=== PATIENT | male | born 1960 | race Caucasian/White ===

== ENCOUNTER → 2021-01-29 10:31 | Outpatient (BNVA) | payer MEDICAID, SELFPAY | PROVIDERS: Visit Provider Surgery | DX: Z01.812 Encounter for preprocedural laboratory examination (principal); K80.20 Calculus of gallbladder without cholecystitis without obstruction; Z20.822 Contact with and (suspected) exposure to COVID-19 | CPT/HCPCS: 87635 ==

== ENCOUNTER 2021-02-03 05:47 | Day surgery (SDC) | payer MEDICAID, SELFPAY ==
[2021-01-31 12:54] VITALS: BMI 23.6
[2021-02-03] VITALS (17 sets, daily range): BP systolic 137–179; BP diastolic 89–122; PULSE 72–89; RESP 15–27; TEMP 36.2–36.5; O2SAT 89–100
--- NOTE | 2021-02-03 06:15 | W.PM.OPSUD ---
Surgery/Procedure H&P Update DATE OF PROCEDURE: February 03, 2021 DATE H&P PERFORMED: 01/16/21 H&P UPDATE INFORMATION: I have reviewed H&P completed within last 30 days, I have examined patient prior to procedure and No changes to prior documentation PREOP DIAGNOSIS: Symptomatic cholelithiasis PRIMARY INDICATION FOR PROCEDURE: The same PLANNED PROCEDURE: Operation Date: 02/03/21 07:00 Proposed Procedures p Laparoscopic Cholecystectomy 14493 K80.20(Not Applicable) - Nils Jerry MD
[2021-02-03] MEDS: sodium chloride 0.9% 1,000 ML 30 ML IV (06:31)
--- NOTE | 2021-02-03 07:00 | ANES.PREANE2 ---
Documented by User: Alcira Farr CRNA 02/03/21 07:06 Pre-Anesthetic Assessment Pre-Anesthetic Assessment: Height/Weight: Height 5 ft 10 in Weight 74.843 kg Temp Pulse Resp BP Pulse Ox 97.7 F 87 18 166/108 95 02/03/21 06:17 02/03/21 06:17 02/03/21 06:17 02/03/21 06:17 02/03/21 06:17 Preop Diagnosis: Symptomatic cholelithiasis Proposed Procedure: Operation Date: 02/03/21 07:00 Proposed Procedures p Laparoscopic Cholecystectomy 59056 K80.20(Not Applicable) - Nils Jerry MD Was Beta Meek taken within 24 hours: N/A Was Clonidine taken within 24 hours: N/A Last intake: Intake Last Liquid Date 02/02/21 Last Liquid Time 20:00 Last Solid Date 02/02/21 Last Solid Time 20:00 Social: Social History: Tobacco (quit smoking 2016, had last chewing tobacco last night) Exam: Pre-Anes Outpt Exam: alert, oriented x 3 and clear to auscultation bilaterally Airway: Submandibular: WNL Cervical ROM: WNL MP: 2 Dentition: False (upper) History/ROS: No significant history except as noted Pulmonary: Pulmonary: None reported CV/HEM: CV/HEM: CHF (1 year ago came to hospital with leg swelling; put on lasix and never followed up with blood tester fowl) and HTN Comments: denies CP today and for the last year. no SOB since last year : Comments: renal caluli Hepatic: Hepatic: None reported GI: GI: None reported Metabolic: Metabolic: None reported Musc/skel: Musc/skel: Lower Back Pain (takes aleve ocassionally/last time 3 weeks ago) Neuropsych: Neuropsych: Anxiety and Depression Anesthetic Plan: ASA status: 3 Anesthesia: Anesthesia Evaluation and General Risk of > 500 ml blood loss (7ml/kg in children): No Meds/Allergies Current Medications: Current Medications Generic Name Dose Route Start Last Admin Trade Name Freq PRN Reason Stop Dose Admin Sodium Chloride 1,000 mls @ 30 ml s/hr 02/03/21 06:15 02/03/21 06:31 Sodium Chloride 0.9% IV 02/04/21 06:14 30 mls/hr .Q24H RIO Administration PFSH Anesthesia PFSH: Medical History Hypertension Social History Second hand smoke exposure: No Smoking risk assessment/counseling performed?: Yes Alcohol intake: never Desire information about alcohol rehabilitation?: No Counseling given: Yes Desire information about substance/drug rehabilitation?: No Counseling given: Yes Adopted: No Caregiver/support person: No Lives independently: Yes Household members: family Housing: Manufactured/Mobile home Marital status: Number of children: 1 Highest education level completed: GED or Equivalent service: No Current occupational status: disabled History of recent travel: No Data Anesthesia Cardiac Studies: No Data to Display Documented by User: Lewis Villasenor 02/03/21 08:01 PFS Anesthesia PFSH: Medical History Hypertension Social History Second hand smoke exposure: No Smoking risk assessment/counseling performed?: Yes Alcohol intake: never Desire information about alcohol rehabilitation?: No Counseling given: Yes Desire information about substance/drug rehabilitation?: No Counseling given: Yes Adopted: No Caregiver/support person: No Lives independently: Yes Household members: family Housing: Manufactured/Mobile home Marital status: Number of children: 1 Highest education level completed: GED or Equivalent service: No Current occupational status: disabled History of recent travel: No Data Anesthesia Cardiac Studies: No Data to Display
[2021-02-03] MEDS: ampicillin-sulbactam 3 GM in sodium chloride 0.9% (plus) 50 ML IV (07:16)
[2021-02-03] MEDS: lidocaine 2% INJ 20 mL INJECTION (08:02)
--- NOTE | 2021-02-03 08:34 | P.OP_ITS ---
Operative Report Date of procedure: February 03, 2021 Pre-op Diagnosis: Symptomatic cholelithiasis Post-op diagnosis: other (Chronic calculus cholecystitis and liver cirrhosis) Procedure Done: 1-Laparoscopic cholecystectomy 2-Laparoscopic liver biopsy Implants: Pieces of Surgicel at the gallbladder fossa Specimens removed/disposition: Gallbladder and contents Liver biopsy Surgeon: Nils Jerry Cement Finisher Helper: Surgical techjuany Win Medical student Veronica Guevara Circulating nurse Vibha Anesthesia: General (GETA kiln burner helper Sienna) Estimated blood loss (mL): 15 IV fluids (mL): 700 Condition: stable Disposition: same day Brief History: Symptomatic cholelithiasis Procedure: Patient was identified in the holding area and taken back to the operative suite, placed in supine position intubated by anesthesia . Time-out was done verifying the patient's name/date of /planned procedure and destination after the procedure, all were in agreement. SCDs confirmed to be functioning, preoperative antibiotics administered per protocol, and beta danyel protocol was confirmed. Patient was appropriately secured to the table, footboard was applied to the OR table, before prep and drape anesthesia was asked to tilt the table back and forth to make sure that the patient is appropriately secured and she was. Prep and drape of the abdomen was done under the usual sterile technique, followed by that supraumbilical skin incision,skin incision was done by a 15 blade knife, and stay sutures were applied to the fascia and Fabian trocar technique was used to enter the abdominal without injuring any abdominal viscera, started by low flow gas insufflation followed by a high flow, started with a 10 mm laparoscope and under direct vision there was no evidence of any injuries, the scope then switched to a 30? ,10 millimeter scope and under direct visualization 5 millimeter trocar was inserted in the epigastric region followed by two 5 mm trocars were inserted in the right upper quadrant that was done after injection of local lidocaine 2% at all incision sites. Gallbladder showed chronic calculus cholecystitis with remarkable liver cirrhosis without evidence of intra-abdominal varices or ascites. Patient was then positioned in the head up and tilted to the left Ratcheted forceps were introduced into the lateral most 5mm port and was applied unto the fundus of the gallbladder cephalad and using Bullet forceps the infundibulum of the gallbladder was retracted laterally. Using [place] forceps then L-hook cautery to dissect the peritoneum overlying the Calot's triangle whihc was then opened medially and laterally until the cystic duct and the cystic artery were skeletonized. Dissection was carried along the body of the gallbladder and after ensuring critical view of safety was identfied. Cystic duct and cystic artery where seen connected to the gallbladder. 3 were applied on the cystic duct towards the common bile duct 1 towards the gallbladder then divided is in sharp scissors, 2 clips were then applied onto the cystic artery and 1 towards the gallbladder and divided by sharp scissors. Dissection was then carried along of the gallbladder from the gallbladder fossa using cautery as well as sharp dissection with heat energy. The gallbladder then was dissected out from the gallbladder fossa totally , cholecystectomy was then achieved and was placed in an Endo Catch bag and then retrieved from the Fabian trocar site under direct visualization using a 5 mm 30? scope through the epigastric trocar, specimen was then passed to the circulating nurse to go for permanent pathology,irrigation and hemostasis was d one to the gallbladder fossa after hemostasis was secured, final survey laparoscopy was done that showed no injuries. Suction irrigation was obtained. I decided to apply 3 pieces of Surgicel at the gallbladder fossa and obtain a biopsy from the edge of the right lobe of the liver for permanent pathology. Appropriate cauterization was done to the biopsy liver site The supraumbilical fascial defect was then closed using interrupted PDS sutures using a fascial closure device ;Doug Pratt under direct visualization Gas was allowed to deflate,Trocars were then taken out under direct vision there was no evidence of bleeding Specimen was passed to the circulating nurse for permanent pathology. No drains were placed and the supraumbilical incision as well as all trocar sites were closed by 3/0 VICRYL BY SKIN EMMY to approximate the skin edges of all incisions, dressing was applied in the form of Dermabond and the patient patient got extubated and was taken to recovery area in a stable condition. Count of sponges, needles and instruments were completed at the end of the procedure I was present for the whole entire procedure.
[2021-02-03] MEDS: fentaNYL 50 mcg/mL INJ 2mL IVP (09:00)
[2021-02-03] MEDS: hyDRALAzine 20 mg/mL INJ 1 mL 10 MG IVP (09:15)
[2021-02-03] MEDS: oxyCODONE 5 mg IR Tab/Cap PO (10:04)
--- NOTE | 2021-02-03 15:36 | ANE.PACU2 ---
Inpatient post-anesthesia follow up: Airway intact: Yes Vital signs: Temperature 97.2 F Pulse Rate 89 Respiratory Rate 16 Blood Pressure 166/105 Pulse Oximetry 90 Oxygen Delivery Me thod Room Air Oxygen Flow Rate 2 Fraction of Inspir ed Oxygen Hydration adequate: Yes Nausea and vomiting: No Pain level: 2 Mental status: Baseline
== END 2021-02-03 10:30 | disposition home or self-care (01) ==
PROVIDERS: Visit Provider Surgery
PROC: 0FT44ZZ Resection of Gallbladder, Percutaneous Endoscopic Approach (ICD-10-PCS; CPT 47562; principal; 2021-02-03 07:00)
DX: K80.10 Calculus of gallbladder with chronic cholecystitis without obstruction (principal); K74.60 Unspecified cirrhosis of liver; F17.220 Nicotine dependence, chewing tobacco, uncomplicated; I11.0 Hypertensive heart disease with heart failure; I50.9 Heart failure, unspecified
CPT/HCPCS: 47379; 47562; 88304; 88307; J0295; J0360; J2405; J2704; J2710; J3010; J3490; J7030

== ENCOUNTER → 2021-03-12 15:24 | Outpatient (BNVA) | payer MEDICAID, SELFPAY | PROVIDERS: Visit Provider Internal Medicine | DX: B19.20 Unspecified viral hepatitis C without hepatic coma (principal) | CPT/HCPCS: 80053; 82105; 87522; 87902 ==

== ENCOUNTER → 2021-09-15 10:43 | Outpatient (BNVA) | payer MEDICAID, SELFPAY | PROVIDERS: Visit Provider Nurse Practitioner Family | DX: I10 Essential (primary) hypertension (principal); Z12.11 Encounter for screening for malignant neoplasm of colon; K59.00 Constipation, unspecified | CPT/HCPCS: 80053; 80061; 84443; 85025; G0103 ==

== ENCOUNTER → 2021-10-08 11:30 | Outpatient (BNVA) | payer MEDICAID, SELFPAY | PROVIDERS: Visit Provider Internal Medicine | DX: B19.20 Unspecified viral hepatitis C without hepatic coma (principal); K74.60 Unspecified cirrhosis of liver; B18.2 Chronic viral hepatitis C; I10 Essential (primary) hypertension | CPT/HCPCS: 80053; 87522 ==

== ENCOUNTER 2021-12-17 18:01 | Emergency (ER) | payer MEDICAID, SELFPAY ==
[2021-12-17 18:05] VITALS: BP 138/88; PULSE 106; RESP 18; TEMP 37.6; O2SAT 95; BMI 25.0
[2021-12-17 19:03] LABS: Basophils % 0.6 %; Eosinophils % 0.2 %; Hematocrit 50.1 % (42.0-52.0); Hemoglobin 17.1 g/dL (11.7-16.6); Lymphocytes # 1.1 10^3/uL (0.8-4.8); Lymphocytes % 17.2 %; Mean Corpuscular HGB Conc 34.1 g/dL (30.0-36.0); Mean Corpuscular Hemoglobin 32.1 pg (28.0-34.0); Mean Platelet Volume 9.2 fL (7.4-10.4); Monocytes # 0.8 10^3/uL (0.2-0.9); Monocytes % 12.9 %; Neutrophils # 4.37 10^3/uL (1.8-7.7); Neutrophils % 67.7 %; Nucleated Red Blood Cells % 0 %; Platelet Count 146 10^3/cmm (130-400); Red Blood Count 5.33 10^6/uL (4.1-5.3); White Blood Count 6.5 10^3/uL (4.0-10.0)
[2021-12-17 19:15] LABS: SARS Covid-2 Antigen Negative (Negative)
[2021-12-17 19:18] LABS: Alanine Aminotransferase 26 U/L (0-41); Albumin Level 4.7 g/dL (3.5-5.2); Alkaline Phosphatase 68 U/L (40-130); Anion Gap 15.7 (5-19); Aspartate Amino Transferase 29 U/L (0-40); Blood Urea Nitrogen 13 mg/dL (8-23); Calcium 9.7 mg/dL (8.5-10.5); Carbon Dioxide 23 mmol/L (22-29); Chloride 98 mmol/L (98-107); Glomerular Filtration Rate 85.2 mL/min (90-130); Glucose 115 mg/dL (65-115); Osmolality Calculated 275 mOsm/kg (285-295); Potassium 4.7 mmol/L (3.5-5.1); Sodium 132 mmol/L (136-145); Total Bilirubin 0.9 mg/dL (0.15-1.2); Total Protein 7.7 g/dL (6.6-8.7)
--- NOTE | 2021-12-17 19:34 | W.ED.GENADLT ---
HPI - General Adult General: Chief complaint: Abdominal Pain Stated complaint: Fever Time Seen by Provider: 12/17/21 19:32 History of Present Illness: Patient is 61-year-old male with a history of cirrhosis presenting to hepatitis, cholelithiasis presenting to the emergency room for complaints of RLQ abd pain x 3 days and concerns for subjective fever. Patient tells me that at home he took his temperature and noticed that his temperature was anywhere from 102 to 105 degrees by skin in the last 3 days. In addition, patient complained of left flank and left lower quadrant abdominal pain. Patient denies any nausea/vomiting, diarrhea melena or hematochezia. Patient denies any hematemesis. Patient denies that his abdomen is diffusely painful. Patient reports the pain is intermittent colicky worse p.o. with p.o. intake. Patient denies any urinary complaints. Patient denies any recent history of paracentesis. Patient denies any cough, runny nose, sore throat, chest pain or shortness of breath. Onset:3 days ago Duration:3 days Location:home Severity:moderate Associated symptoms: Deny chest pain, dyspnea, nausea, rash, palpitations or vomiting Review of Systems Const: Denies: fever(s) or chills Eyes: Denies: change in vision ENMT: Denies: mouth pain Card: Denies: chest pain or palpitations Resp: Denies: dyspnea or non-productive cough GI: Reports: abdominal pain; Denies: nausea, vomiting or diarrhea : Denies: dysuria Musc: Denies: extremity pain Skin/Breast: Denies: rash or new lesions Neuro: Denies: weakness in extremities Psych: Reports: other (Normal mood) Harish/Lymph: Denies: easy bruising PFSH ED PFSH: Medical History (Updated 12/17/21 @ 21:15 by Silva Steele MD) Cirrhosis Hepatitis C Hypertension Symptomatic cholelithiasis Social History Smoking and tobacco status: never smoked Second hand smoke exposure: No Smoking risk assessment/counseling performed?: Yes Alcohol intake: never Desire information about alcohol rehabilitation?: No Counseling given: Yes Desire information about substance/drug rehabilitation?: No Counseling given: Yes Adopted: No Caregiver/support person: No Lives independently: Yes Household members: family Housing: Manufactured/Mobile home Marital status: Number of children: 1 Highest education level completed: GED or Equivalent service: No Current occupational status: disabled History of recent travel: No Physical Exam Const: COMMON NORMALS: alert HENMT: COMMON NORMALS: atraumatic HEAD & SCALP: atraumatic MOUTH: moist mucous membranes not abnormal Eye: COMMON NORMALS: EOMs intact bilaterally and conjunctivae normal CONJUNCTIVA: Yes conjunctivae normal Neck/C-Spine: COMMON NORMALS: full ROM and supple Resp: COMMON NORMALS: normal respiratory effort and clear to auscultation bilaterally AUSCULTATION: clear to auscultation bilaterally Cardio: COMMON NORMALS: regular rate RATE: regular rate GI: COMMON NORMALS: Soft to palpation PALPATION: Yes Soft to palpation OTHER: +mild L flank and LLQ focal TTP. NO guarding rebound, guarding, rigidity. No CVA tenderness to percussion. Neg Scott/Neg McBurney's point tenderness, no suprabupic tenderness to palpation. Extremity: COMMON NORMALS: full ROM Neuro: SENSORIUM/ORIENTATION: Yes alert MOTOR EXAM: No Abnormal motor strength present and Other motor observations present (no focal motor deficits) Psych: COMMON NORMALS: speech normal SPEECH: Yes normal speech MOOD & AFFECT: Yes euthymic mood Course Vital Signs: Vital signs: Vital Signs Temperature 98.5 F 12/17/21 20:40 Pulse Rate 81 12/17/21 20:40 Respiratory Rate 23 H 12/17/21 20:59 Blood Pressure 154/97 12/17/21 20:40 Pulse Oximetry 95 12/17/21 20:59 Oxygen Delivery Me thod 12/17/21 20:44 [facility] - General Adult Medical Decision Making 61-year-old male with a history of cirrhosis, hepatitis C presenting to the emergency room for evaluation of left flank/left lower quadrant ongoing for the last 3 days. On physical exam, patient is hemodynamically stable, afebrile. Patient is noted to have mild tenderness plus in the left flank and left lower quadrant. There is no diffuse abdominal tenderness to palpation, guarding or rebound tenderness. There is no abdominal distention. CT of the pelvis showed findings consider gastroenteritis. Patient has no focal diffuse abdominal tenderness to suggest SBP. No suspicion for other acute intra-abdominal pathology including SBO, biliary pathology, appendicitis, diverticulitis, or other emergent condition requiring surgery. Rx Maalox/pepcid PRN dyspepsia, and zofran PRN nausea/vomiting Disposition: Discharge. Patient counseled regarding diagnostic impression, treatment plan. Patient given ED strict return precautions to return for continuation, worsening, or development of new symptoms. Instructed to f/u w/ PCP regarding symptoms today. Patient verbalized understanding. Lab Data : 12/17/21 18:41 12/17/21 18:41 Radiology Impressions Abdomen/Pelvis CT 12/17/21 20:18 IMPRESSION: 1. Fluid within the small bowel and colon without evidence of bowel wall thickening. This may reflect viral gastroenteritis in the appropriate clinical situation. 2. Findings suspicious for cirrhosis and mild portal hypertension with mild splenomegaly and small caliber varices in the upper abdomen. 3. Incidental/nonacute findings are listed in the report. Laboratory Results WBC 6.5 10^3/uL (4.0-10.0) 12/17/21 18:41 RBC 5.33 10^6/uL (4.1-5.3) H 12/17/21 18:41 Hgb 17.1 g/dL (11.7-16.6) H 12/17/21 18:41 Hct 50.1 % (42.0-52.0) 12/17/21 18:41 MCV 94.0 fl (80-94) 12/17/21 18:41 MCH 32.1 pg (28.0-34.0) 12/17/21 18:41 MCHC 34.1 g/dL (30.0-36.0) 12/17/21 18:41 RDW 13.0 % (12.1-15.1) 12/17/21 18:41 Plt Count 146 10^3/cmm (130-400) 12/17/21 18:41 MPV 9.2 fL (7.4-10.4) 12/17/21 18:41 Neut % (Auto) 67.7 % 12/17/21 18:41 Lymph % (Auto) 17.2 % 12/17/21 18:41 Posey % (Auto) 12.9 % 12/17/21 18:41 Eos % (Auto) 0.2 % 12/17/21 18:41 Baso % (Auto) 0.6 % 12/17/21 18:41 Neut # (Auto) 4.37 10^3/uL (1.8-7.7) 12/17/21 18:41 Lymph # (Auto) 1.1 10^3/uL (0.8-4.8) 12/17/21 18:41 Posey # (Auto) 0.8 10^3/uL (0.2-0.9) 12/17/21 18:41 Eos # (Auto) 0.0 10^3/uL (0.0-0.8) 12/17/21 18:41 Baso # (Auto) 0.0 10^3/uL (0.0-0.1) 12/17/21 18:41 Nucleated RBC % (auto) 0 % 12/17/21 18:41 Nucleated RBCs # 0.0 /100WBC 12/17/21 18:41 Sodium 132 mmol/L (136-145) L 12/17/21 18:41 Potassium 4.7 mmol/L (3.5-5.1) 12/17/21 18:41 Chloride 98 mmol/L (98-107) 12/17/21 18:41 Carbon Dioxide 23 mmol/L (22-29) 12/17/21 18:41 Anion Gap 15.7 (5-19) 12/17/21 18:41 BUN 13 mg/dL (8-23) 12/17/21 18:41 Creatinine 0.9 mg/dL (0.7-1.2) 12/17/21 18:41 GFR Calculation 85.2 mL/min (90-130) L 12/17/21 18:41 Glucose 115 mg/dL (65-115) 12/17/21 18:41 Calculated Osmolality 275 mOsm/kg (285-295) L 12/17/21 18:41 Calcium 9.7 mg/dL (8.5-10.5) 12/17/21 18:41 Total Bilirubin 0.9 mg/dL (0.15-1.2) 12/17/21 18:41 AST 29 U/L (0-40) 12/17/21 18:41 ALT 26 U/L (0-41) 12/17/21 18:41 Alkaline Phosphatase 68 U/L (40-130) 12/17/21 18:41 Total Protein 7.7 g/dL (6.6-8.7) 12/17/21 18:41 Albumin 4.7 g/dL (3.5-5.2) 12/17/21 18:41 Globulin 3.0 g/dL (1.3-4.6) 12/17/21 18:41 Urine Color Yellow (Yellow) 12/17/21 19:54 Urine Appearance Clear (CLEAR) 12/17/21 19:54 Urine pH 5 (5-7) 12/17/21 19:54 Ur Specific [place] 1.020 (1.005-1.030) 12/17/21 19:54 Urine Protein Neg (Negative) 12/17/21 19:54 Urine Glucose (UA) Norm (Normal) 12/17/21 19:54 Urine Ketones Negative (Negative) 12/17/21 19:54 Urine Blood Neg (Negative) 12/17/21 19:54 Urine Nitrate Negative (Negative) 12/17/21 19:54 Urine Bilirubin 1+ (Negative) H 12/17/21 19:54 Urine Urobilinogen 1 mg/dL (Negative) H 12/17/21 19:54 Ur Leukocyte Esterase Negative (Negative) 12/17/21 19:54 SARS-CoV-2 Ag (Rapid) Negative (Negative) 12/17/21 18:41 Imaging Data Other Imaging: Radiologist's impression: [place] [address] CT Scan Report Signed Patient: Cely Deluna Unit #: [id number] : 1960 Age/Sex: 61 / M ADM Date: 12/17/21 Loc: ER Room/Bed: Attending Dr: Ordering Provider/Ordering MD: Silva Steele MD Date of Service: 12/17/21 Procedure(s): CT abdomen pelvis w con* [id number] Accession Number(s): [id number] Report Number: [id number] PROCEDURE INFORMATION: Exam: CT Abdomen And Pelvis With Contrast Exam date and time: 12/17/2021 8:30 PM Age: 61 years old Clinical indication: Abdominal pain; Generalized; Patient HX: Cirrhosis, hep c, ; additional info: Abd pain TECHNIQUE: Imaging protocol: Computed tomography of the abdomen and pelvis with contrast. Sagittal and coronal reformatted images were created and reviewed. Radiation optimization: All CT scans at this facility use at least one of these dose optimization techniques: automated exposure control; mA and/or kV adjustment per patient size (includes targeted exams where dose is matched to clinical indication); or iterative reconstruction. Contrast material: OMNIPAQUE 350; Contrast volume: 80 ml; Contrast route: INTRAVENOUS (IV);? COMPARISON: No relevant prior studies available. RADIATION DOSE METRICS: Total DLP (mGy-cm): 539.83 FINDINGS: Lungs: Visualized lungs are clear. Pleural spaces: No pleural effusion. Heart: Visualized portions of the heart are mildly enlarged. Mild atherosclerotic calcification in the visualized coronary arteries. Liver: Nodular contour of the liver. No focal hepatic mass. Gallbladder and bile ducts: Patient has had a previous cholecystectomy. Dilatation of the biliary ducts, not unexpected in a patient who has had a prior cholecystectomy. Pancreas: The pancreas is unremarkable. No pancreatic ductal dilatation. Spleen: Mild enlargement of the spleen measuring 13.7 cm in length (series 5, image 35). Small splenule in the left upper quadrant. Adrenal glands: The right and left adrenal glands are unremarkable. Kidneys and ureters: The right and left kidneys are unremarkable. The right and left ureters are unremarkable. Stomach and bowel: Fluid within the small bowel and colon without evidence of bowel wall thickening. Appendix: The appendix is visualized and is unremarkable. No findings to suggest acute appendicitis. Intraperitoneal space: No free intraperitoneal air. No ascites. No loculated fluid collections to suggest an abscess. Vasculature: Mild atherosclerotic changes in the visualized arteries. No evidence for aortic aneurysm or aortic dissection. Hepatic veins, portal veins, splenic vein, and SMV are patent. Small caliber varices in the gastrohepatic ligament gastrosplenic ligament, and left upper quadrant omentum. Lymph nodes: No lymphadenopathy. Urinary bladder: The bladder is incompletely filled, which can limit evaluation. No focal abnormality in the bladder however. Reproductive: Nonspecific parenchymal calcifications in the prostate gland. Bones/joints: Degenerative changes in the spine and hips. Multilevel foraminal stenosis of varying severity in the lumbar spine. Soft tissues: No acute abnormality in the extra-abdominal soft tissues. CT/CT abdomen pelvis w con* [id number] IMPRESSION: 1. Fluid within the small bowel and colon without evidence of bowel wall thickening. This may reflect viral gastroenteritis in the appropriate clinical situation. 2. Findings suspicious for cirrhosis and mild portal hypertension with mild splenomegaly and small caliber varices in the upper abdomen. 3. Incidental/nonacute findings are listed in the report. ? Dictated By: Laly Crawford MD Signed By: Laly Crawford MD Signed Date/Time: 12/17/212111 DD/ 29 Discharge Plan Discharge Patient Disposition: Home Clinical Impression: Abdominal pain Condition: Stable Prescriptions: New Pepcid 20 mg tablet 20 mg PO BID PRN (Reason: abdominal pain) 10 Days Qty: 20 0RF ondansetron 4 mg tablet,disintegrating 4 mg PO TID PRN (Reason: nausea and vomiting) 4 Days Qty: 12 0RF Maalox Advanced 1,000-60 mg tablet,chewable 1 tab PO TID PRN (Reason: abdominal pain) 7 Days Qty: 21 0RF No Action lisinopril 40 mg tablet 40 mg PO DAILY Qty: 30 2RF amlodipine 10 mg tablet 10 mg PO DAILY Qty: 30 2RF sennosides-docusate sodium 8.6-50 mg tablet 1 tab-cap PO DAILY Qty: 30 2RF Discharge Orders: Discharge ED (Routine); Ordered 12/17/21 Ordered By: Silva Steele Discharge Diet: Advance as tolerated Discharge Activity: Increase activity as tolerated Patient Instructions: Abdominal Pain (ED) Activity Restrictions/Additional Instructions: Please come back if you have any worsening abdominal pain, fever or chills, nausea or vomiting, diarrhea, blood in the stool, inability hold down liquid or solids, or any new concerning complaints. Coding Level of Care Code ED Recreation Facility Attendant for Chg Fwd Exam Comprehensive
[2021-12-17 20:07] LABS: Add Urine Microscopic? NO; Charge for UA Resulting for Rev
--- NOTE | 2021-12-17 20:18 | CTR_ITS ---
PROCEDURE INFORMATION: Exam: CT Abdomen And Pelvis With Contrast Exam date and time: 12/17/2021 8:30 PM Age: 61 years old Clinical indication: Abdominal pain; Generalized; Patient HX: Cirrhosis, hep c, ; additional info: Abd pain TECHNIQUE: Imaging protocol: Computed tomography of the abdomen and pelvis with contrast. Sagittal and coronal reformatted images were created and reviewed. Radiation optimization: All CT scans at this facility use at least one of these dose optimization techniques: automated exposure control; mA and/or kV adjustment per patient size (includes targeted exams where dose is matched to clinical indication); or iterative reconstruction. Contrast material: OMNIPAQUE 350; Contrast volume: 80 ml; Contrast route: INTRAVENOUS (IV); COMPARISON: No relevant prior studies available. RADIATION DOSE METRICS: Total DLP (mGy-cm): 539.83 FINDINGS: Lungs: Visualized lungs are clear. Pleural spaces: No pleural effusion. Heart: Visualized portions of the heart are mildly enlarged. Mild atherosclerotic calcification in the visualized coronary arteries. Liver: Nodular contour of the liver. No focal hepatic mass. Gallbladder and bile ducts: Patient has had a previous cholecystectomy. Dilatation of the biliary ducts, not unexpected in a patient who has had a prior cholecystectomy. Pancreas: The pancreas is unremarkable. No pancreatic ductal dilatation. Spleen: Mild enlargement of the spleen measuring 13.7 cm in length (series 5, image 35). Small splenule in the left upper quadrant. Adrenal glands: The right and left adrenal glands are unremarkable. Kidneys and ureters: The right and left kidneys are unremarkable. The right and left ureters are unremarkable. Stomach and bowel: Fluid within the small bowel and colon without evidence of bowel wall thickening. Appendix: The appendix is visualized and is unremarkable. No findings to suggest acute appendicitis. Intraperitoneal space: No free intraperitoneal air. No ascites. No loculated fluid collections to suggest an abscess. Vasculature: Mild atherosclerotic changes in the visualized arteries. No evidence for aortic aneurysm or aortic dissection. Hepatic veins, portal veins, splenic vein, and SMV are patent. Small caliber varices in the gastrohepatic ligament gastrosplenic ligament, and left upper quadrant omentum. Lymph nodes: No lymphadenopathy. Urinary bladder: The bladder is incompletely filled, which can limit evaluation. No focal abnormality in the bladder however. Reproductive: Nonspecific parenchymal calcifications in the prostate gland. Bones/joints: Degenerative changes in the spine and hips. Multilevel foraminal stenosis of varying severity in the lumbar spine. Soft tissues: No acute abnormality in the extra-abdominal soft tissues. CT/CT abdomen pelvis w con* [id number] IMPRESSION: 1. Fluid within the small bowel and colon without evidence of bowel wall thickening. This may reflect viral gastroenteritis in the appropriate clinical situation. 2. Findings suspicious for cirrhosis and mild portal hypertension with mild splenomegaly and small caliber varices in the upper abdomen. 3. Incidental/nonacute findings are listed in the report.
[2021-12-17 20:30] LABS: Bilirubin Urine 1+ (Negative); Blood Urine Neg (Negative); Glucose Urine UA Norm (Normal); Ketones Urine Negative (Negative); Leukocyte Esterase Urine Negative (Negative); Nitrate Urine Negative (Negative); Protein Urine Neg (Negative); Urine Appearance Clear (CLEAR); Urine Color Yellow (Yellow); Urobilinogen Urine 1 mg/dL (Negative); pH Urine 5 (5-7)
[2021-12-17] MEDS: iohexol 350 mg/mL 100 mL Btl IV (20:31)
[2021-12-17 20:40] VITALS: BP 154/97; PULSE 81; RESP 21; TEMP 36.9; O2SAT 94
[2021-12-17 20:44] VITALS: O2SAT 95
[2021-12-17 20:59] VITALS: RESP 23; O2SAT 95
[2021-12-17] MEDS: morphine 4 mg/mL SDV 1 mL IVP (20:59)
[2021-12-17] MEDS: sodium chloride 0.9% 1,000 ML 999 ML IV (21:00)
[2021-12-17 21:41] VITALS: BP 163/95; PULSE 95; O2SAT 95
== END 2021-12-17 21:40 | disposition home or self-care (01) ==
PROVIDERS: Emergency Medicine; Emergency Provider Emergency Medicine
DX: R10.9 Unspecified abdominal pain (principal); I10 Essential (primary) hypertension; Z86.19 Personal history of other infectious and parasitic diseases
CPT/HCPCS: 74177; 80053; 81003; 85025; 87426; 96361; 96374; 99285; J2270; J7030; Q9967

== ENCOUNTER → 2022-05-05 14:12 | Outpatient (BNVA) | payer MEDICAID, SELFPAY | PROVIDERS: Visit Provider Nurse Practitioner Family | DX: I10 Essential (primary) hypertension (principal); K59.00 Constipation, unspecified; B18.2 Chronic viral hepatitis C; Z12.11 Encounter for screening for malignant neoplasm of colon | CPT/HCPCS: 80053; 80061; 84443; 85025 ==

== ENCOUNTER → 2023-12-09 10:51 | Outpatient (BNVA) | payer MEDICARE, SELFPAY | PROVIDERS: PCP Nurse Practitioner Family; Visit Provider Nurse Practitioner Family | DX: I10 Essential (primary) hypertension (principal) | CPT/HCPCS: 80053; 80061; 84443; 85025 ==